=== PATIENT | female | born 2000 | race Hispanic/Latino ===

== ENCOUNTER 2023-12-11 21:31 | Emergency (ER) | payer SELFPAY ==
[~2023-12-11] VITALS: Ht 162.6 cm; Wt 78.0 kg
[~2023-12-11 21:31] MED LIST: CEFDINIR300 MG PO; CIPROFLOX-DEXA7.5 ML RIGHT EAR; IBUPROFEN600 MG PO
[2023-12-11 21:47] VITALS: PULSE 70; RESP 18; TEMP 98.3
[2023-12-11] MEDS: METOCLOPRAMIDE HCL 10 MG/2ML VIAL IM ONE (22:16)
[2023-12-11] MEDS: KETOROLAC TROMETHAMINE 60 MG/2 ML VIAL IM ONE (22:17)
[2023-12-11] MEDS ORDERED: PROTONIX20 MG PO (23:16)
[2023-12-11] MEDS ORDERED: BACTRIM DS TAB1 EACH PO (23:16)
[2023-12-11] MEDS ORDERED: FIORICET 50-301 EACH PO (23:16)
[2023-12-11 23:22] VITALS: BP 133/83; PULSE 70; RESP 18; TEMP 98.3; O2SAT 98
== END 2023-12-11 23:22 | disposition home or self-care (01) ==
LOC: FSED 21:52
DX: R51.9 Headache, unspecified (principal); N39.0 Urinary tract infection, site not specified; R10.13 Epigastric pain; J45.909 Unspecified asthma, uncomplicated; Z11.52 Encounter for screening for COVID-19
CPT/HCPCS: 0223U; 70450; 81003; 81025; 87400; 96372; 99282; J1885; J2765

== ENCOUNTER 2025-04-11 10:57 | Emergency (ER) | payer SELFPAY ==
[~2025-04-11] VITALS: Ht 162.6 cm; Wt 78.7 kg
[~2025-04-11 10:57] MED LIST changes: +BACTRIM DS TAB1 EACH PO; +FIORICET 50-301 EACH PO; +PROTONIX20 MG PO
[2025-04-11 11:29] VITALS: TEMP 98.9
[2025-04-11] MEDS ORDERED: IBUPROFEN600 MG PO (11:48)
[2025-04-11] MEDS ORDERED: CLEOCIN HCL300 MG PO (11:48)
[2025-04-11 12:59] VITALS: PULSE 100; RESP 16; O2SAT 100
[2025-04-11] MEDS: CLINDAMYCIN HCL 150 MG CAP PO ONE (14:09)
== END 2025-04-11 13:02 | disposition home or self-care (01) ==
LOC: FSED 11:34
DX: H92.01 Otalgia, right ear (principal); J02.0 Streptococcal pharyngitis; R51.9 Headache, unspecified; J45.909 Unspecified asthma, uncomplicated; Z11.52 Encounter for screening for COVID-19
CPT/HCPCS: 0223U; 83518; 87400; 99283